=== PATIENT | male | born 1945 | race Caucasian/White ===

== ENCOUNTER 2017-08-11 14:34 | Inpatient (IN) | payer MEDICARE, MEDICAID ==
[~2017-08-11] VITALS: Ht 185.4 cm; Wt 103.5 kg
[~2017-08-11 14:34] MED LIST: ASPI-1265 PO; ATOR20TA66 PO; COR3.125T PO; HYDR-569 PO; ISOS30TA6 PO; LOSA25TA21 PO; RANO500T3 PO
[2017-08-11 15:17] LABS: BASOPHILS # (AUTO) 0.1 X10'3 (0-0.2); BASOPHILS % (AUTO) 0.8 % (0-1); EOSINOPHILS # (AUTO) 0.2 X10'3 (0-0.9); EOSINOPHILS % (AUTO) 2.1 % (0-6); HEMATOCRIT 45.4 % (42.0-52.0); HEMOGLOBIN 15.1 g/dl (14.0-17.9); LYMPHOCYTES # (AUTO) 1.9 X10'3 (1.1-4.8); LYMPHOCYTES % (AUTO) 24.3 % (21-51); MEAN CORPUSCULAR HEMOGLOBIN 30.7 PG (27.0-31.0); MEAN CORPUSCULAR HGB CONC 33.1 % (33.0-36.5); MEAN CORPUSCULAR VOLUME 92.7 FL (78-98); MEAN PLATELET VOLUME 10.5 FL (7.4-10.4); MONOCYTES # (AUTO) 0.5 X10'3 (0-0.9); MONOCYTES % (AUTO) 6.9 % (2-12); NEUTROPHILS # (AUTO) 5.1 X10'3 (1.8-7.7); NEUTROPHILS % (AUTO) 65.9 % (42-75); PLATELET COUNT 187 X10'3 (140-440); RED CELL DISTRIBUTION WIDTH 15.3 % (11.5-14.5); WHITE BLOOD COUNT 7.7 X10'3 (4.5-11.0)
[2017-08-11 15:27] LABS: PARTIAL THROMBOPLASTIN TIME 27 SECONDS (22-32); PROTHROMBIN TIME 10.5 SECONDS (9.0-12.0)
[2017-08-11 15:31] LABS: ALANINE AMINOTRANSFERASE 18 U/L (12-78); ALBUMIN 3.6 G/DL (3.4-5.0); ALBUMIN/GLOBULIN RATIO 0.9 (1.1-1.5); ALKALINE PHOSPHATASE 101 IU/L (46-116); ANION GAP 11 (8-16); ASPARTATE AMINO TRANSFERASE 11 U/L (10-37); BILIRUBIN,TOTAL 0.5 MG/DL (0.1-1.0); BLOOD UREA NITROGEN 9 MG/DL (7-18); BUN/CREATININE RATIO 6.4 (5.4-32.0); CALCIUM 9.7 MG/DL (8.5-10.1); CHLORIDE 103 MMOL/L (99-107); GLUCOSE 120 MG/DL (70-104); POTASSIUM 4.4 MMOL/L (3.5-5.1); SODIUM 141 MMOL/L (135-145); TOTAL CARBON DIOXIDE 26.8 MMOL/L (24-32); TOTAL PROTEIN 7.7 G/DL (6.4-8.2); eGFR 50 ML/MIN
[2017-08-11] MEDS ORDERED: enoxaparin 100mg/ml syringe SUBCUT ONE (16:30)
[2017-08-11] MEDS ORDERED: nitroGLYCERIN 0.4mg/hour patch TD ONE (16:30)
[2017-08-11] MEDS ORDERED: carvedilol 6.25mg tablet PO ONE (16:30)
[2017-08-11] MEDS ORDERED: aspirin 81mg tab.chew PO ONE (16:30)
[2017-08-11 17:00] LABS: ETHANOL < 0.010 GM/DL (0.0-0.010)
[2017-08-11] MEDS ORDERED: magnesium hydroxide 30ml (MOM) UD suspension PO PRN (17:25)
[2017-08-11] MEDS ORDERED: magnesium Cl slow-release 64mg tablet PO PRN (17:25)
[2017-08-11] MEDS ORDERED: potassium Cl 40MEQ/NS 500ml 500 ML IV PRN ×2 (17:25)
[2017-08-11] MEDS ORDERED: ondansetron/PF 4mg/2ml inj IV PRN (17:25)
[2017-08-11] MEDS ORDERED: magnesium 4gm in 100ml NS 100 ML IV PRN (17:25)
[2017-08-11] MEDS ORDERED: acetaminophen 325mg tablet PO PRN ×2 (17:25)
[2017-08-11] MEDS ORDERED: albuterol 2.5 MG/3 ML nebule NEB PRN (17:25)
[2017-08-11] MEDS ORDERED: potassium Cl 20 mEq SR tablet PO PRN ×2 (17:25)
[2017-08-11] MEDS ORDERED: HYDROcodone/acetaminophen 10/325mg tab PO PRN (17:25)
[2017-08-11] MEDS ORDERED: mag hydrox/Alum hydrox/simeth 30ml oral suspension PO PRN (17:25)
[2017-08-11] MEDS ORDERED: magnesium 2GM in 50ml NS 50 ML IV PRN (17:25)
[2017-08-11 18:06] LABS: CLARITY,URINE Clear (Clear); COLOR,URINE Dark Yellow (Yellow); GLUCOSE, URINE Negative (Neg); KETONES,URINE 15 mg/dl (Neg); LEUKOCYTE ESTERASE ,URINE Small (Neg); NITRITES, URINE Negative (Neg); OCCULT BLOOD,URINE Negative (Neg); PROTEIN,URINE 30 mg/dl (Neg)
[2017-08-11 18:07] LABS: UA COLLECTION TYPE CLN CATCH MIDSTREAM
[2017-08-11] MEDS: normal saline 1000ml 1,000 ML IV SCH (18:08)
[2017-08-11 18:12] LABS: BACTERIA,URINE NONE SEEN /HPF (Neg); MUCUS STRANDS NONE SEEN /LPF (Neg); RBC,URINE NONE SEEN /HPF (0-2); SQUAMOUS EPITHELIAL CELL,UR FEW /LPF (FEW); WBC,URINE 0-4 /HPF (0-4)
[2017-08-11 18:17] LABS: URINE AMPHETAMINE SCREEN NEGATIVE (Neg); URINE BARBITUATE SCREEN NEGATIVE (Neg); URINE BENZODIAZEPINES SCREEN NEGATIVE (Neg); URINE CANNABINOID SCREEN NEGATIVE (Neg); URINE COCAINE SCREEN NEGATIVE (Neg); URINE METHADONE SCREEN NEGATIVE (Neg); URINE OPIATE SCREEN NEGATIVE (Neg); URINE PHENCYCLIDINE SCREEN NEGATIVE (Neg)
[2017-08-11] MEDS: cefTRIAXone 1g/NS 100ml IVPB 100 ML IV SCH (18:33)
[2017-08-11] MEDS: pantoprazole 40mg Tablet.DR PO SCH (18:33)
[2017-08-11] MEDS ORDERED: OXYB5TAB PO (18:55)
[2017-08-11] MEDS ORDERED: AZIT-21 PO (18:55)
[2017-08-11] MEDS: carVEDilol 3.125mg tablet PO SCH (20:39)
[2017-08-11] MEDS: ranolazine 500mg SR tablet (Q12H) PO SCH (20:39)
[2017-08-11] MEDS: tamsulosin 0.4mg capsule PO SCH (20:40)
[2017-08-11] MEDS: heparin, porcine 5000 units/ml vial SQ SCH (20:40)
[2017-08-11] MEDS ORDERED: temazepam 15mg capsule PO PRN (21:00)
[2017-08-11 21:43] LABS: HEMOGLOBIN A1C 5.5 % (4.5-6.2)
[2017-08-12] VITALS: BP 139/74
[2017-08-12] MEDS: HYDROcodone/acetaminophen 5mg/325mg tablet PO PRN ×2 (00:43→19:29)
[2017-08-12 03:16] LABS: BASOPHILS % (AUTO) 0.5 % (0-1); EOSINOPHILS # (AUTO) 0.3 X10'3 (0-0.9); EOSINOPHILS % (AUTO) 2.8 % (0-6); HEMATOCRIT 40.4 % (42.0-52.0); HEMOGLOBIN 13.4 g/dl (14.0-17.9); LYMPHOCYTES # (AUTO) 2.3 X10'3 (1.1-4.8); LYMPHOCYTES % (AUTO) 25.4 % (21-51); MEAN CORPUSCULAR HEMOGLOBIN 30.6 PG (27.0-31.0); MEAN CORPUSCULAR HGB CONC 33.1 % (33.0-36.5); MEAN CORPUSCULAR VOLUME 92.4 FL (78-98); MEAN PLATELET VOLUME 10.6 FL (7.4-10.4); MONOCYTES # (AUTO) 0.7 X10'3 (0-0.9); MONOCYTES % (AUTO) 7.5 % (2-12); NEUTROPHILS # (AUTO) 5.8 X10'3 (1.8-7.7); NEUTROPHILS % (AUTO) 63.8 % (42-75); PLATELET COUNT 160 X10'3 (140-440); RED BLOOD COUNT 4.37 X10'6 (4.70-6.10); RED CELL DISTRIBUTION WIDTH 15.6 % (11.5-14.5)
[2017-08-12 03:31] LABS: ALANINE AMINOTRANSFERASE 16 U/L (12-78); ALBUMIN 3.1 G/DL (3.4-5.0); ALBUMIN/GLOBULIN RATIO 0.9 (1.1-1.5); ALKALINE PHOSPHATASE 83 IU/L (46-116); ANION GAP 8 (8-16); ASPARTATE AMINO TRANSFERASE 15 U/L (10-37); BILIRUBIN,TOTAL 0.4 MG/DL (0.1-1.0); BLOOD UREA NITROGEN 12 MG/DL (7-18); BUN/CREATININE RATIO 9.9 (5.4-32.0); CALCIUM 8.9 MG/DL (8.5-10.1); CHLORIDE 107 MMOL/L (99-107); CREATININE 1.21 MG/DL (0.60-1.10); GLUCOSE 139 MG/DL (70-104); POTASSIUM 4.1 MMOL/L (3.5-5.1); SODIUM 141 MMOL/L (135-145); TOTAL CARBON DIOXIDE 25.7 MMOL/L (24-32); TOTAL PROTEIN 6.6 G/DL (6.4-8.2); eGFR 59 ML/MIN
[2017-08-12 03:34] LABS: CHOL/HDL RATIO 4.6 (0.00-4.99); CHOLESTEROL 169 MG/DL (0-200); HDL CHOLESTEROL 37 MG/DL (35-60); LDL CHOLESTEROL 120 MG/DL (50-100); MAGNESIUM 1.9 MG/DL (1.5-2.4); TRIGLYCERIDES 111 MG/DL (20-135)
[2017-08-12 08:00] VITALS: BP 111/74
[2017-08-12] MEDS: K and/or MAG REPLACEMENT MC SCH (08:00)
[2017-08-12] MEDS: isosorbide mononitrate 30mg tab.SR.24H PO SCH (09:23)
[2017-08-12] MEDS: aspirin 81mg tab.chew PO SCH (09:24)
[2017-08-12] MEDS: atorvastatin 20mg tablet PO SCH (09:24)
[2017-08-12] MEDS: lactobacillus rhamnosus 10,000 MMU CELLS/CAPSULE PO SCH ×2 (09:24→17:55)
[2017-08-12] MEDS: pantoprazole 40mg Tablet.DR PO SCH (09:25)
[2017-08-12] MEDS: ranolazine 500mg SR tablet (Q12H) PO SCH ×2 (09:25→19:31)
[2017-08-12] MEDS: carVEDilol 3.125mg tablet PO SCH ×2 (09:26→19:30)
[2017-08-12] MEDS: cefTRIAXone 1g/NS 100ml IVPB 100 ML IV SCH (09:27)
[2017-08-12] MEDS: heparin, porcine 5000 units/ml vial SQ SCH ×2 (09:27→19:32)
[2017-08-12] MEDS: normal saline 1000ml 1,000 ML IV SCH ×2 (09:27→22:12)
[2017-08-12] MEDS: losartan 25mg tablet PO SCH (09:33)
[2017-08-12] MEDS: nicotine 14mg patch - 24hr TD SCH (10:50)
[2017-08-12 11:00] VITALS: BP 124/73
[2017-08-12 18:00] VITALS: BP 105/63
[2017-08-12] MEDS: tamsulosin 0.4mg capsule PO SCH (19:38)
[2017-08-13] VITALS: BP 104/57
[2017-08-13] MEDS: HYDROcodone/acetaminophen 5mg/325mg tablet PO PRN (03:31)
[2017-08-13 06:11] LABS: BASOPHILS % (AUTO) 0.5 % (0-1); EOSINOPHILS # (AUTO) 0.2 X10'3 (0-0.9); EOSINOPHILS % (AUTO) 2.5 % (0-6); HEMOGLOBIN 12.6 g/dl (14.0-17.9); LYMPHOCYTES % (AUTO) 28.7 % (21-51); MEAN CORPUSCULAR HEMOGLOBIN 30.9 PG (27.0-31.0); MEAN CORPUSCULAR HGB CONC 33.1 % (33.0-36.5); MEAN CORPUSCULAR VOLUME 93.2 FL (78-98); MONOCYTES # (AUTO) 0.6 X10'3 (0-0.9); MONOCYTES % (AUTO) 9.3 % (2-12); NEUTROPHILS # (AUTO) 4.1 X10'3 (1.8-7.7); PLATELET COUNT 142 X10'3 (140-440); RED BLOOD COUNT 4.08 X10'6 (4.70-6.10); RED CELL DISTRIBUTION WIDTH 15.2 % (11.5-14.5); WHITE BLOOD COUNT 6.9 X10'3 (4.5-11.0)
[2017-08-13] MEDS: K and/or MAG REPLACEMENT MC SCH (06:57)
[2017-08-13 07:08] LABS: ALANINE AMINOTRANSFERASE 18 U/L (12-78); ALBUMIN/GLOBULIN RATIO 0.9 (1.1-1.5); ALKALINE PHOSPHATASE 76 IU/L (46-116); ANION GAP 6 (8-16); ASPARTATE AMINO TRANSFERASE 11 U/L (10-37); BILIRUBIN,TOTAL 0.3 MG/DL (0.1-1.0); BLOOD UREA NITROGEN 11 MG/DL (7-18); BUN/CREATININE RATIO 9.6 (5.4-32.0); CALCIUM 8.6 MG/DL (8.5-10.1); CHLORIDE 106 MMOL/L (99-107); CREATININE 1.14 MG/DL (0.60-1.10); GLUCOSE 128 MG/DL (70-104); MAGNESIUM 1.8 MG/DL (1.5-2.4); POTASSIUM 4.7 MMOL/L (3.5-5.1); SODIUM 140 MMOL/L (135-145); TOTAL PROTEIN 6.3 G/DL (6.4-8.2); eGFR 64 ML/MIN
[2017-08-13 07:30] VITALS: BP 127/70
[2017-08-13 07:35] LABS: LARGE PLATELETS FEW; PLATELET ESTIMATE NORMAL
[2017-08-13] MEDS: aspirin 81mg tab.chew PO SCH (07:57)
[2017-08-13] MEDS: lactobacillus rhamnosus 10,000 MMU CELLS/CAPSULE PO SCH ×2 (08:07→17:33)
[2017-08-13] MEDS: atorvastatin 20mg tablet PO SCH (08:07)
[2017-08-13] MEDS: pantoprazole 40mg Tablet.DR PO SCH (08:08)
[2017-08-13] MEDS: heparin, porcine 5000 units/ml vial SQ SCH (08:08)
[2017-08-13] MEDS: ranolazine 500mg SR tablet (Q12H) PO SCH ×2 (08:08→20:08)
[2017-08-13] MEDS: carVEDilol 3.125mg tablet PO SCH ×2 (08:08→20:07)
[2017-08-13] MEDS: losartan 25mg tablet PO SCH (08:08)
[2017-08-13] MEDS: nicotine 14mg patch - 24hr TD SCH (08:09)
[2017-08-13] MEDS: cefTRIAXone 1g/NS 100ml IVPB 100 ML IV SCH (08:10)
[2017-08-13] MEDS: isosorbide mononitrate 30mg tab.SR.24H PO SCH (08:19)
[2017-08-13] MEDS ORDERED: LORazepam 0.5 MG tablet PO PRN (08:40)
[2017-08-13 11:15] LABS: ABG BASE EXCESS -2.9 mmol/L (-2.0-3.0); ABG OXYGEN SATURATION 95.1 % (95-98); ABG PH (T) 7.409 (7.350-7.450); ABG PO2 (T) 78.6 mmHg (83-108); ALLEN'S TEST Positive; FCOHb 0.3 % (0.5-1.5); FLOW 1 L/min; FMetHb 0.1 % (0.3-1.12); FO2Hb 94.7 % (94-100); RESPIRATORY RATE (OBSERVED) 20 b/min; TOTAL HEMOGLOBIN 12.8 G/dl (14.0-18.0)
[2017-08-13] MEDS: normal saline 1000ml 1,000 ML IV SCH (11:39)
[2017-08-13] MEDS ORDERED: nitroGLYCERIN 0.4mg SUBLingual tab SL PRN (12:35)
[2017-08-13] MEDS ORDERED: PANT40TA4 PO (17:50)
[2017-08-13] MEDS ORDERED: NICO-631 TD (17:50)
[2017-08-13] MEDS ORDERED: CLOP75TA35 PO (17:50)
[2017-08-13 20:00] VITALS: BP 123/68
[2017-08-13] MEDS: tamsulosin 0.4mg capsule PO SCH (20:08)
[2017-08-14] VITALS: BP 108/65
[2017-08-14] MEDS: normal saline 1000ml 1,000 ML IV SCH ×2 (04:50→15:21)
[2017-08-14 06:04] LABS: BASOPHILS % (AUTO) 0.4 % (0-1); EOSINOPHILS # (AUTO) 0.2 X10'3 (0-0.9); EOSINOPHILS % (AUTO) 2.6 % (0-6); HEMATOCRIT 39.1 % (42.0-52.0); HEMOGLOBIN 13.2 g/dl (14.0-17.9); LYMPHOCYTES # (AUTO) 1.7 X10'3 (1.1-4.8); LYMPHOCYTES % (AUTO) 27.2 % (21-51); MEAN CORPUSCULAR HEMOGLOBIN 31.1 PG (27.0-31.0); MEAN CORPUSCULAR HGB CONC 33.7 % (33.0-36.5); MEAN CORPUSCULAR VOLUME 92.3 FL (78-98); MEAN PLATELET VOLUME 10.5 FL (7.4-10.4); MONOCYTES # (AUTO) 0.6 X10'3 (0-0.9); MONOCYTES % (AUTO) 9.1 % (2-12); NEUTROPHILS # (AUTO) 3.9 X10'3 (1.8-7.7); NEUTROPHILS % (AUTO) 60.7 % (42-75); PLATELET COUNT 139 X10'3 (140-440); RED BLOOD COUNT 4.24 X10'6 (4.70-6.10); RED CELL DISTRIBUTION WIDTH 14.8 % (11.5-14.5); WHITE BLOOD COUNT 6.4 X10'3 (4.5-11.0)
[2017-08-14 06:33] LABS: ALANINE AMINOTRANSFERASE 17 U/L (12-78); ALBUMIN 2.9 G/DL (3.4-5.0); ALBUMIN/GLOBULIN RATIO 0.8 (1.1-1.5); ALKALINE PHOSPHATASE 78 IU/L (46-116); ANION GAP 7 (8-16); ASPARTATE AMINO TRANSFERASE 12 U/L (10-37); BILIRUBIN,TOTAL 0.3 MG/DL (0.1-1.0); BLOOD UREA NITROGEN 10 MG/DL (7-18); BUN/CREATININE RATIO 9.5 (5.4-32.0); CALCIUM 8.7 MG/DL (8.5-10.1); CHLORIDE 107 MMOL/L (99-107); CREATININE 1.05 MG/DL (0.60-1.10); GLUCOSE 116 MG/DL (70-104); POTASSIUM 4.2 MMOL/L (3.5-5.1); SODIUM 141 MMOL/L (135-145); TOTAL CARBON DIOXIDE 26.7 MMOL/L (24-32); TOTAL PROTEIN 6.5 G/DL (6.4-8.2); eGFR 70 ML/MIN
[2017-08-14 06:53] LABS: LARGE PLATELETS FEW; PLATELET ESTIMATE DECREASED
[2017-08-14 08:00] VITALS: BP 110/59
[2017-08-14] MEDS ORDERED: clopidogrel 75mg tablet PO SCH (08:00)
[2017-08-14] MEDS: K and/or MAG REPLACEMENT MC SCH (08:00)
[2017-08-14] MEDS ORDERED: atorvastatin 20mg tablet PO SCH (08:00)
[2017-08-14] MEDS: cefTRIAXone 1g/NS 100ml IVPB 100 ML IV SCH (08:28)
[2017-08-14] MEDS: lactobacillus rhamnosus 10,000 MMU CELLS/CAPSULE PO SCH (08:28)
[2017-08-14] MEDS: carVEDilol 3.125mg tablet PO SCH (08:29)
[2017-08-14] MEDS: aspirin 81mg tab.chew PO SCH (08:29)
[2017-08-14] MEDS: isosorbide mononitrate 30mg tab.SR.24H PO SCH (08:29)
[2017-08-14] MEDS: pantoprazole 40mg Tablet.DR PO SCH (08:29)
[2017-08-14] MEDS: ranolazine 500mg SR tablet (Q12H) PO SCH (08:30)
[2017-08-14] MEDS: losartan 25mg tablet PO SCH (08:30)
[2017-08-14] MEDS: nicotine 14mg patch - 24hr TD SCH (08:30)
[2017-08-14 12:00] VITALS: BP 112/61
[2017-08-14] MEDS: HYDROcodone/acetaminophen 5mg/325mg tablet PO PRN (15:22)
== END 2017-08-14 18:15 | disposition home or self-care (01) | DRG 392 ==
LOC: ER 14:35 → ED HOLD 16:42 → SUR 3N 22:25
PROVIDERS: ADMIT Internal Medicine; ATTEND Internal Medicine
DX: K21.9 Gastro-esophageal reflux disease without esophagitis (principal); I50.9 Heart failure, unspecified; J44.9 Chronic obstructive pulmonary disease, unspecified; I11.0 Hypertensive heart disease with heart failure; J40 Bronchitis, not specified as acute or chronic; Z95.1 Presence of aortocoronary bypass graft; F32.9 Major depressive disorder, single episode, unspecified; R07.89 Other chest pain; I25.10 Atherosclerotic heart disease of native coronary artery without angina pectoris; E11.9 Type 2 diabetes mellitus without complications; E78.00 Pure hypercholesterolemia, unspecified; E78.5 Hyperlipidemia, unspecified; F17.210 Nicotine dependence, cigarettes, uncomplicated; F41.9 Anxiety disorder, unspecified; G89.29 Other chronic pain; N40.0 Benign prostatic hyperplasia without lower urinary tract symptoms; Z82.49 Family history of ischemic heart disease and other diseases of the circulatory system; Z86.73 Personal history of transient ischemic attack (TIA), and cerebral infarction without residual deficits; I25.2 Old myocardial infarction; Z59.0 Homelessness; Z90.49 Acquired absence of other specified parts of digestive tract; Z91.14 Patient's other noncompliance with medication regimen; Z91.19 Patient's noncompliance with other medical treatment and regimen; Z71.6 Tobacco abuse counseling; Z79.899 Other long term (current) drug therapy; Z79.82 Long term (current) use of aspirin
CPT/HCPCS: 36415; 36600; 71010; 80053; 80061; 80305; 80320; 81001; 82803; 83036; 83735; 84443; 84484; 85018; 85025; 85610; 85730; 87070; 93005; 93306; 94640; 94760; 99285; J0696; J1644; J1650; J2270; J7030

== ENCOUNTER 2019-01-19 16:27 | Emergency (ER) | payer MEDICARE, MEDICAID ==
[~2019-01-19] VITALS: Ht 188 cm; Wt 100.0 kg
[~2019-01-19 16:27] MED LIST changes: +ALBU8.5H8 INH; +ASPI-1071 PO; -ASPI-1265 PO; +BUDE10.22 INH; +CLOP75TA35 PO; -HYDR-569 PO; +LISI-642 PO; -LOSA25TA21 PO; +NITR0.4T51 SL; +PRED20TA PO; -RANO500T3 PO
--- NOTE | 2019-01-19 16:34 | NUR ---
EKG [id number]
[2019-01-19 16:55] LABS: BASOPHILS # (AUTO) 0.1 X10'3 (0-0.2); BASOPHILS % (AUTO) 0.4 % (0-1); EOSINOPHILS % (AUTO) 0 % (0-6); HEMOGLOBIN 14.3 g/dl (14.0-17.9); LYMPHOCYTES # (AUTO) 0.8 X10'3 (1.1-4.8); LYMPHOCYTES % (AUTO) 5.1 % (21-51); MEAN CORPUSCULAR HEMOGLOBIN 30.6 PG (27.0-31.0); MEAN CORPUSCULAR HGB CONC 33.2 g/dL (33.0-36.5); MEAN CORPUSCULAR VOLUME 92.2 FL (78-98); MEAN PLATELET VOLUME 11.9 FL (7.4-10.4); MONOCYTES # (AUTO) 0.9 X10'3 (0-0.9); MONOCYTES % (AUTO) 5.6 % (2-12); NEUTROPHILS # (AUTO) 14.5 X10'3 (1.8-7.7); NEUTROPHILS % (AUTO) 88.9 % (42-75); PLATELET COUNT 181 X10'3 (140-440); RED BLOOD COUNT 4.66 X10'6 (4.70-6.10); RED CELL DISTRIBUTION WIDTH 15.7 % (11.5-14.5); WHITE BLOOD COUNT 16.3 X10'3 (4.5-11.0)
[2019-01-19 17:04] LABS: PARTIAL THROMBOPLASTIN TIME 30 SECONDS (22-32)
[2019-01-19 17:07] LABS: ALANINE AMINOTRANSFERASE 136 U/L (12-78); ALBUMIN 3.1 G/DL (3.4-5.0); ALBUMIN/GLOBULIN RATIO 0.8 (1.1-1.5); ALKALINE PHOSPHATASE 86 IU/L (46-116); ANION GAP 11 (8-16); ASPARTATE AMINO TRANSFERASE 136 U/L (10-37); BILIRUBIN,TOTAL 0.2 MG/DL (0.1-1.0); BLOOD UREA NITROGEN 27 MG/DL (7-18); BUN/CREATININE RATIO 17.6 (5.4-32.0); CALCIUM 9.2 MG/DL (8.5-10.1); CHLORIDE 106 MMOL/L (99-107); CREATININE 1.53 MG/DL (0.60-1.10); GLUCOSE 179 MG/DL (70-104); POTASSIUM 4.7 MMOL/L (3.5-5.1); SODIUM 142 MMOL/L (135-145); TOTAL CARBON DIOXIDE 25.4 MMOL/L (24-32); TOTAL PROTEIN 7.1 G/DL (6.4-8.2); eGFR 45 ML/MIN
[2019-01-19] MEDS ORDERED: nitroGLYCERIN 0.4mg SUBLingual tab SL PRN (17:20)
--- NOTE | 2019-01-19 18:09 | NUR ---
[employer] CALLED TO TAKE PT TO [facility] @ [phone].
[2019-01-19 18:14] VITALS: BP 100/65
== END 2019-01-19 18:17 | disposition home or self-care (01) ==
LOC: ER 16:27 → CANBEDREQ 16:53 → ER 18:17
DX: R07.89 Other chest pain (principal); R06.02 Shortness of breath; I25.10 Atherosclerotic heart disease of native coronary artery without angina pectoris; E78.00 Pure hypercholesterolemia, unspecified; I11.0 Hypertensive heart disease with heart failure; I50.9 Heart failure, unspecified; I25.2 Old myocardial infarction; E11.9 Type 2 diabetes mellitus without complications; G89.29 Other chronic pain; Z86.73 Personal history of transient ischemic attack (TIA), and cerebral infarction without residual deficits; Z90.49 Acquired absence of other specified parts of digestive tract; Z95.1 Presence of aortocoronary bypass graft; Z98.890 Other specified postprocedural states; Z56.0 Unemployment, unspecified; Z59.0 Homelessness; Z79.82 Long term (current) use of aspirin; Z79.899 Other long term (current) drug therapy
CPT/HCPCS: 36415; 71045; 80053; 82948; 84484; 85025; 85610; 85730; 93005; 99284

== ENCOUNTER 2019-01-27 15:45 | Emergency (ER) | payer MEDICARE, MEDICAID ==
[~2019-01-27] VITALS: Ht 185.4 cm; Wt 230.0 kg
[2019-01-27] MEDS ORDERED: ipratropium/albuterol 3ml nebule NEB ONE (16:10)
[2019-01-27 16:42] LABS: BASOPHILS % (AUTO) 0.3 % (0-1); EOSINOPHILS # (AUTO) 0.2 X10'3 (0-0.9); EOSINOPHILS % (AUTO) 1.7 % (0-6); HEMATOCRIT 41.2 % (42.0-52.0); HEMOGLOBIN 13.6 g/dl (14.0-17.9); LYMPHOCYTES # (AUTO) 1.2 X10'3 (1.1-4.8); LYMPHOCYTES % (AUTO) 11.6 % (21-51); MEAN CORPUSCULAR HEMOGLOBIN 30.6 PG (27.0-31.0); MEAN CORPUSCULAR HGB CONC 33.1 g/dL (33.0-36.5); MEAN CORPUSCULAR VOLUME 92.5 FL (78-98); MEAN PLATELET VOLUME 10.5 FL (7.4-10.4); MONOCYTES # (AUTO) 0.7 X10'3 (0-0.9); MONOCYTES % (AUTO) 6.4 % (2-12); NEUTROPHILS # (AUTO) 8.5 X10'3 (1.8-7.7); PLATELET COUNT 211 X10'3 (140-440); RED BLOOD COUNT 4.45 X10'6 (4.70-6.10); RED CELL DISTRIBUTION WIDTH 15.3 % (11.5-14.5); WHITE BLOOD COUNT 10.6 X10'3 (4.5-11.0)
[2019-01-27 16:53] LABS: PARTIAL THROMBOPLASTIN TIME 32 SECONDS (22-32)
[2019-01-27 16:55] LABS: ALANINE AMINOTRANSFERASE 85 U/L (12-78); ALBUMIN 2.6 G/DL (3.4-5.0); ALBUMIN/GLOBULIN RATIO 0.6 (1.1-1.5); ALKALINE PHOSPHATASE 117 IU/L (46-116); ANION GAP 6 (8-16); ASPARTATE AMINO TRANSFERASE 50 U/L (10-37); BILIRUBIN,TOTAL 0.9 MG/DL (0.1-1.0); BLOOD UREA NITROGEN 18 MG/DL (7-18); BUN/CREATININE RATIO 13.3 (5.4-32.0); CALCIUM 8.9 MG/DL (8.5-10.1); CHLORIDE 103 MMOL/L (99-107); CREATININE 1.35 MG/DL (0.60-1.10); GLUCOSE 137 MG/DL (70-104); POTASSIUM 4.9 MMOL/L (3.5-5.1); SODIUM 135 MMOL/L (135-145); TOTAL CARBON DIOXIDE 26.3 MMOL/L (24-32); TOTAL PROTEIN 7.2 G/DL (6.4-8.2); eGFR 52 ML/MIN
[2019-01-27 17:02] LABS: MAGNESIUM 1.9 MG/DL (1.5-2.4)
[2019-01-27] MEDS ORDERED: isosorbide mononitrate 30mg tab.SR.24H PO ONE (17:10)
[2019-01-27] MEDS ORDERED: carVEDilol 3.125mg tablet PO SCH (17:10)
[2019-01-27] MEDS ORDERED: clopidogrel 75mg tablet PO SCH (17:10)
--- NOTE | 2019-01-27 18:56 | NUR ---
pt given urinal at his request
[2019-01-27 20:32] VITALS: BP 124/74
== END 2019-01-27 20:40 | disposition home or self-care (01) ==
LOC: ER 15:46
DX: R07.89 Other chest pain (principal); R42 Dizziness and giddiness; I25.119 Atherosclerotic heart disease of native coronary artery with unspecified angina pectoris; I11.0 Hypertensive heart disease with heart failure; I50.9 Heart failure, unspecified; I25.2 Old myocardial infarction; E11.9 Type 2 diabetes mellitus without complications; G89.29 Other chronic pain; Z86.73 Personal history of transient ischemic attack (TIA), and cerebral infarction without residual deficits; Z90.49 Acquired absence of other specified parts of digestive tract; Z98.890 Other specified postprocedural states; Z79.82 Long term (current) use of aspirin; Z79.899 Other long term (current) drug therapy; Z59.0 Homelessness; Z56.0 Unemployment, unspecified
CPT/HCPCS: 36415; 71045; 80053; 83735; 83880; 84484; 85025; 85610; 85730; 93005; 94640; 94760; 99284

== ENCOUNTER 2019-01-29 11:40 | Emergency (ER) | payer MEDICARE, MEDICAID ==
[~2019-01-29] VITALS: Ht 185.4 cm; Wt 106.0 kg
--- NOTE | 2019-01-29 11:48 | NUR ---
pato hill at bedside.
[2019-01-29] MEDS ORDERED: nitroGLYCERIN 0.4mg SUBLingual tab SL PRN (11:50)
[2019-01-29 12:04] LABS: BASOPHILS % (AUTO) 0.5 % (0-1); EOSINOPHILS # (AUTO) 0.2 X10'3 (0-0.9); EOSINOPHILS % (AUTO) 1.9 % (0-6); HEMATOCRIT 38.1 % (42.0-52.0); HEMOGLOBIN 13.2 g/dl (14.0-17.9); LYMPHOCYTES # (AUTO) 1.8 X10'3 (1.1-4.8); LYMPHOCYTES % (AUTO) 21.7 % (21-51); MEAN CORPUSCULAR HEMOGLOBIN 31.6 PG (27.0-31.0); MEAN CORPUSCULAR HGB CONC 34.6 g/dL (33.0-36.5); MEAN CORPUSCULAR VOLUME 91.3 FL (78-98); MEAN PLATELET VOLUME 10.1 FL (7.4-10.4); MONOCYTES # (AUTO) 0.7 X10'3 (0-0.9); MONOCYTES % (AUTO) 8.5 % (2-12); NEUTROPHILS # (AUTO) 5.6 X10'3 (1.8-7.7); NEUTROPHILS % (AUTO) 67.4 % (42-75); PLATELET COUNT 211 X10'3 (140-440); RED BLOOD COUNT 4.17 X10'6 (4.70-6.10); RED CELL DISTRIBUTION WIDTH 14.8 % (11.5-14.5); WHITE BLOOD COUNT 8.4 X10'3 (4.5-11.0)
[2019-01-29 12:18] LABS: ALANINE AMINOTRANSFERASE 47 U/L (12-78); ALBUMIN 2.5 G/DL (3.4-5.0); ALBUMIN/GLOBULIN RATIO 0.6 (1.1-1.5); ALKALINE PHOSPHATASE 102 IU/L (46-116); ANION GAP 5 (8-16); ASPARTATE AMINO TRANSFERASE 19 U/L (10-37); BILIRUBIN,TOTAL 0.3 MG/DL (0.1-1.0); BLOOD UREA NITROGEN 20 MG/DL (7-18); BUN/CREATININE RATIO 16.8 (5.4-32.0); CALCIUM 8.3 MG/DL (8.5-10.1); CHLORIDE 107 MMOL/L (99-107); CREATININE 1.19 MG/DL (0.60-1.10); GLUCOSE 109 MG/DL (70-104); SODIUM 138 MMOL/L (135-145); TOTAL CARBON DIOXIDE 26.1 MMOL/L (24-32); TOTAL PROTEIN 6.6 G/DL (6.4-8.2); eGFR 60 ML/MIN
[2019-01-29 12:31] LABS: PARTIAL THROMBOPLASTIN TIME 31 SECONDS (22-32)
[2019-01-29] MEDS ORDERED: furosemide 20MG tablet PO ONE (12:35)
[2019-01-29 13:02] VITALS: BP 118/75
== END 2019-01-29 13:33 | disposition home or self-care (01) ==
LOC: ER 11:41
DX: R07.89 Other chest pain (principal); I25.10 Atherosclerotic heart disease of native coronary artery without angina pectoris; E78.00 Pure hypercholesterolemia, unspecified; I25.2 Old myocardial infarction; E11.9 Type 2 diabetes mellitus without complications; G89.29 Other chronic pain; F17.200 Nicotine dependence, unspecified, uncomplicated; I11.0 Hypertensive heart disease with heart failure; I50.9 Heart failure, unspecified; Z86.73 Personal history of transient ischemic attack (TIA), and cerebral infarction without residual deficits; Z56.0 Unemployment, unspecified; Z90.49 Acquired absence of other specified parts of digestive tract; Z95.1 Presence of aortocoronary bypass graft; Z98.890 Other specified postprocedural states; Z59.0 Homelessness; Z79.82 Long term (current) use of aspirin; Z79.899 Other long term (current) drug therapy
CPT/HCPCS: 36415; 71045; 80053; 83880; 84484; 85025; 85610; 85730; 93005; 99284

== ENCOUNTER 2019-03-06 21:50 | Emergency (ER) | payer MEDICARE, MEDICAID ==
[~2019-03-06] VITALS: Ht 188 cm; Wt 110.2 kg
[~2019-03-06 21:50] MED LIST changes: +ALBU18HF2 IH; -ALBU8.5H8 INH; -ASPI-1071 PO; -BUDE10.22 INH; -CLOP75TA35 PO; +FLUT1BLS3 NASALCANN; +MULT-1179 PO; -NITR0.4T51 SL; +NO HOME MEDS; +NYSPWD TP; -PRED20TA PO
[2019-03-06 21:57] VITALS: BP 118/70
[2019-03-06 22:42] LABS: BASOPHILS # (AUTO) 0.1 X10'3 (0-0.2); BASOPHILS % (AUTO) 0.7 % (0-1); EOSINOPHILS # (AUTO) 0.3 X10'3 (0-0.9); EOSINOPHILS % (AUTO) 2.9 % (0-6); HEMATOCRIT 42.8 % (42.0-52.0); HEMOGLOBIN 14.3 g/dl (14.0-17.9); LYMPHOCYTES # (AUTO) 2.3 X10'3 (1.1-4.8); LYMPHOCYTES % (AUTO) 27.4 % (21-51); MEAN CORPUSCULAR HEMOGLOBIN 31.2 PG (27.0-31.0); MEAN CORPUSCULAR HGB CONC 33.4 g/dL (33.0-36.5); MEAN CORPUSCULAR VOLUME 93.4 FL (78-98); MEAN PLATELET VOLUME 10.3 FL (7.4-10.4); MONOCYTES # (AUTO) 0.8 X10'3 (0-0.9); MONOCYTES % (AUTO) 9.2 % (2-12); NEUTROPHILS # (AUTO) 5.1 X10'3 (1.8-7.7); NEUTROPHILS % (AUTO) 59.8 % (42-75); PLATELET COUNT 198 X10'3 (140-440); RED BLOOD COUNT 4.58 X10'6 (4.70-6.10); RED CELL DISTRIBUTION WIDTH 16.1 % (11.5-14.5); WHITE BLOOD COUNT 8.6 X10'3 (4.5-11.0)
[2019-03-06 22:58] LABS: ALANINE AMINOTRANSFERASE 36 U/L (12-78); ALBUMIN 3.4 G/DL (3.4-5.0); ALBUMIN/GLOBULIN RATIO 0.8 (1.1-1.5); ALKALINE PHOSPHATASE 99 IU/L (46-116); ANION GAP 11 (8-16); ASPARTATE AMINO TRANSFERASE 20 U/L (10-37); BILIRUBIN,TOTAL 0.5 MG/DL (0.1-1.0); BLOOD UREA NITROGEN 16 MG/DL (7-18); BUN/CREATININE RATIO 12.4 (5.4-32.0); CALCIUM 9.1 MG/DL (8.5-10.1); CHLORIDE 103 MMOL/L (99-107); CREATININE 1.29 MG/DL (0.60-1.10); GLUCOSE 111 MG/DL (70-104); POTASSIUM 4.3 MMOL/L (3.5-5.1); SODIUM 137 MMOL/L (135-145); TOTAL CARBON DIOXIDE 23.2 MMOL/L (24-32); TOTAL PROTEIN 7.5 G/DL (6.4-8.2); eGFR 55 ML/MIN
[2019-03-06 23:04] LABS: TROPONIN I 0.04 NG/ML (0.0-0.05)
[2019-03-06 23:05] LABS: PARTIAL THROMBOPLASTIN TIME 31 SECONDS (22-32)
[2019-03-06] MEDS ORDERED: meclizine 12.5mg tablet PO ONE (23:25)
[2019-03-06] MEDS ORDERED: MECL-111 PO (23:27)
[2019-03-06] MEDS ORDERED: acetaminophen 325mg tablet PO ONE (23:30)
== END 2019-03-07 00:16 | disposition home or self-care (01) ==
LOC: ER 21:51
DX: R42 Dizziness and giddiness (principal); R06.02 Shortness of breath; I25.10 Atherosclerotic heart disease of native coronary artery without angina pectoris; I50.9 Heart failure, unspecified; E78.00 Pure hypercholesterolemia, unspecified; I11.0 Hypertensive heart disease with heart failure; I25.2 Old myocardial infarction; E11.9 Type 2 diabetes mellitus without complications; G89.29 Other chronic pain; F17.210 Nicotine dependence, cigarettes, uncomplicated; Z86.73 Personal history of transient ischemic attack (TIA), and cerebral infarction without residual deficits; Z86.69 Personal history of other diseases of the nervous system and sense organs; Z90.49 Acquired absence of other specified parts of digestive tract; Z95.1 Presence of aortocoronary bypass graft; Z98.890 Other specified postprocedural states; Z59.0 Homelessness; Z56.0 Unemployment, unspecified; Z79.899 Other long term (current) drug therapy
CPT/HCPCS: 36415; 71045; 80053; 83880; 84484; 85025; 85610; 85730; 93005; 99284; J8597

== ENCOUNTER 2019-03-13 19:11 | Emergency (ER) | payer MEDICARE, MEDICAID ==
[~2019-03-13] VITALS: Ht 188 cm; Wt 105.0 kg
[~2019-03-13 19:11] MED LIST changes: +MECL-111 PO; -NO HOME MEDS
[2019-03-13 19:34] LABS: BASOPHILS # (AUTO) 0.1 X10'3 (0-0.2); EOSINOPHILS # (AUTO) 0.2 X10'3 (0-0.9); EOSINOPHILS % (AUTO) 2.3 % (0-6); HEMATOCRIT 38.8 % (42.0-52.0); HEMOGLOBIN 12.9 g/dl (14.0-17.9); LYMPHOCYTES # (AUTO) 2.6 X10'3 (1.1-4.8); LYMPHOCYTES % (AUTO) 28.3 % (21-51); MEAN CORPUSCULAR HEMOGLOBIN 30.9 PG (27.0-31.0); MEAN CORPUSCULAR HGB CONC 33.2 g/dL (33.0-36.5); MEAN CORPUSCULAR VOLUME 93.1 FL (78-98); MEAN PLATELET VOLUME 11.3 FL (7.4-10.4); MONOCYTES % (AUTO) 10.5 % (2-12); NEUTROPHILS # (AUTO) 5.4 X10'3 (1.8-7.7); NEUTROPHILS % (AUTO) 57.9 % (42-75); PLATELET COUNT 182 X10'3 (140-440); RED BLOOD COUNT 4.17 X10'6 (4.70-6.10); RED CELL DISTRIBUTION WIDTH 15.9 % (11.5-14.5); WHITE BLOOD COUNT 9.3 X10'3 (4.5-11.0)
[2019-03-13 19:50] LABS: ALANINE AMINOTRANSFERASE 19 U/L (12-78); ALBUMIN 3.2 G/DL (3.4-5.0); ALBUMIN/GLOBULIN RATIO 0.9 (1.1-1.5); ALKALINE PHOSPHATASE 84 IU/L (46-116); ANION GAP 12 (8-16); ASPARTATE AMINO TRANSFERASE 12 U/L (10-37); BILIRUBIN,TOTAL 0.5 MG/DL (0.1-1.0); BLOOD UREA NITROGEN 22 MG/DL (7-18); BUN/CREATININE RATIO 12.5 (5.4-32.0); CALCIUM 8.4 MG/DL (8.5-10.1); CHLORIDE 111 MMOL/L (99-107); CREATININE 1.76 MG/DL (0.60-1.10); GLUCOSE 139 MG/DL (70-104); POTASSIUM 3.7 MMOL/L (3.5-5.1); SODIUM 144 MMOL/L (135-145); TOTAL CARBON DIOXIDE 21.2 MMOL/L (24-32); TOTAL PROTEIN 6.6 G/DL (6.4-8.2); eGFR 38 ML/MIN
[2019-03-13 20:03] LABS: PARTIAL THROMBOPLASTIN TIME 29 SECONDS (22-32)
[2019-03-13] MEDS ORDERED: normal saline 1000ml 1,000 ML IV ONE (20:35)
[2019-03-13 22:07] VITALS: BP 116/74
[2019-03-14 00:18] LABS: LARGE PLATELETS MODERATE; PLATELET ESTIMATE NORMAL
== END 2019-03-13 22:13 | disposition home or self-care (01) ==
LOC: ER 19:12
DX: R55 Syncope and collapse (principal); I25.10 Atherosclerotic heart disease of native coronary artery without angina pectoris; I11.0 Hypertensive heart disease with heart failure; I50.9 Heart failure, unspecified; E78.00 Pure hypercholesterolemia, unspecified; I25.2 Old myocardial infarction; E11.9 Type 2 diabetes mellitus without complications; G89.29 Other chronic pain; F32.9 Major depressive disorder, single episode, unspecified; Z95.1 Presence of aortocoronary bypass graft; Z79.899 Other long term (current) drug therapy; Z86.73 Personal history of transient ischemic attack (TIA), and cerebral infarction without residual deficits; Z90.49 Acquired absence of other specified parts of digestive tract; Z98.890 Other specified postprocedural states; Z59.0 Homelessness; Z56.0 Unemployment, unspecified; W18.39XA Other fall on same level, initial encounter; Y93.89 Activity, other specified; Y92.89 Other specified places as the place of occurrence of the external cause; Y99.8 Other external cause status
CPT/HCPCS: 36415; 70450; 71045; 71250; 72125; 80053; 84484; 85025; 85610; 85730; 93005; 96360; 99284; J7030

== ENCOUNTER 2019-04-05 16:00 | Emergency (ER) | payer MEDICARE, MEDICAID ==
[~2019-04-05] VITALS: Ht 188 cm; Wt 111.1 kg
[2019-04-05] MEDS ORDERED: normal saline 1000ML IV soln IV ONE (16:15)
[2019-04-05 16:44] LABS: BASOPHILS # (AUTO) 0.1 X10'3 (0-0.2); BASOPHILS % (AUTO) 0.9 % (0-1); EOSINOPHILS # (AUTO) 0.3 X10'3 (0-0.9); HEMATOCRIT 39.2 % (42.0-52.0); HEMOGLOBIN 13.1 g/dl (14.0-17.9); LYMPHOCYTES # (AUTO) 2.5 X10'3 (1.1-4.8); MEAN CORPUSCULAR HEMOGLOBIN 31.3 PG (27.0-31.0); MEAN CORPUSCULAR HGB CONC 33.3 g/dL (33.0-36.5); MEAN PLATELET VOLUME 10.2 FL (7.4-10.4); MONOCYTES # (AUTO) 0.8 X10'3 (0-0.9); MONOCYTES % (AUTO) 9.7 % (2-12); NEUTROPHILS # (AUTO) 4.6 X10'3 (1.8-7.7); NEUTROPHILS % (AUTO) 55.4 % (42-75); PLATELET COUNT 151 X10'3 (140-440); RED BLOOD COUNT 4.17 X10'6 (4.70-6.10); RED CELL DISTRIBUTION WIDTH 16.1 % (11.5-14.5); WHITE BLOOD COUNT 8.3 X10'3 (4.5-11.0)
[2019-04-05 16:59] LABS: eGFR 53 ML/MIN
[2019-04-05 17:03] LABS: ALANINE AMINOTRANSFERASE 24 U/L (12-78); ALBUMIN 3.1 G/DL (3.4-5.0); ALKALINE PHOSPHATASE 75 IU/L (46-116); ANION GAP 7 (8-16); BILIRUBIN,TOTAL 0.6 MG/DL (0.1-1.0); BLOOD UREA NITROGEN 14 MG/DL (7-18); BUN/CREATININE RATIO 10.6 (5.4-32.0); CALCIUM 8.3 MG/DL (8.5-10.1); CREATININE 1.32 MG/DL (0.60-1.10); GLUCOSE 118 MG/DL (70-104); MAGNESIUM 2.1 MG/DL (1.5-2.4); POTASSIUM 4.8 MMOL/L (3.5-5.1); SODIUM 144 MMOL/L (135-145); TOTAL PROTEIN 6.3 G/DL (6.4-8.2); TROPONIN I < 0.04 NG/ML (0.0-0.05)
[2019-04-05 17:04] LABS: ASPARTATE AMINO TRANSFERASE 17 U/L (10-37)
[2019-04-05 17:05] LABS: CHLORIDE 112 MMOL/L (99-107)
[2019-04-05] MEDS ORDERED: acetaminophen 325mg tablet PO ONE (18:00)
[2019-04-05 18:25] VITALS: BP 140/87
== END 2019-04-05 18:34 | disposition home or self-care (01) ==
LOC: ER 16:00
DX: M79.18 Myalgia, other site (principal); G89.29 Other chronic pain; R07.89 Other chest pain; R42 Dizziness and giddiness; I11.0 Hypertensive heart disease with heart failure; I50.9 Heart failure, unspecified; I25.10 Atherosclerotic heart disease of native coronary artery without angina pectoris; E78.00 Pure hypercholesterolemia, unspecified; I25.2 Old myocardial infarction; J44.9 Chronic obstructive pulmonary disease, unspecified; E11.9 Type 2 diabetes mellitus without complications; F32.9 Major depressive disorder, single episode, unspecified; N40.0 Benign prostatic hyperplasia without lower urinary tract symptoms; Z95.1 Presence of aortocoronary bypass graft; Z90.49 Acquired absence of other specified parts of digestive tract; Z98.890 Other specified postprocedural states; Z59.0 Homelessness; Z56.0 Unemployment, unspecified; Z79.899 Other long term (current) drug therapy
CPT/HCPCS: 36415; 71045; 80053; 83735; 84484; 85025; 93005; 96360; 99284; J7030; J7040